=== PATIENT | male | born 1980 | race Caucasian/White ===

== ENCOUNTER 2016-06-16 16:19 | Emergency (ER) | payer OTHER ==
[~2016-06-16 16:19] MED LIST: ALDACTONE25 MG PO; B-1100 MG PO; CELEXA20 MG PO; CIPRO500 MG PO; CREON DR 12,001 EACH PO; FLAGYL500 MG PO; FOLIC ACID1 MG PO; LACTULOSE20 GM/30 M PO; MAGNESIUM OXID400 MG PO; MINIPRESS2 MG PO; ONCE DAILY1 EACH PO; ONE DAILY1 EACH PO; PANCRELIPASE PO; PHENERGAN25 M1 PO; POLYETHYLENE GL17 GM PO; PROPRANOLOL HCL10 MG PO; PROTONIX40 MG PO; ROXICODONE5 MG PO; VALIUM5 MG PO
== END 2016-06-16 21:40 | disposition short-term general hospital (02) ==
LOC: ER 16:19
DX: K92.2 Gastrointestinal hemorrhage, unspecified (principal); D62 Acute posthemorrhagic anemia; K72.90 Hepatic failure, unspecified without coma; F10.10 Alcohol abuse, uncomplicated; I10 Essential (primary) hypertension; F43.10 Post-traumatic stress disorder, unspecified; Z79.899 Other long term (current) drug therapy
CPT/HCPCS: 36415; 36430; 96366; 96367; 96376; G0480; J0696; J2060; P9021